=== PATIENT | male | born 1955 | race Caucasian/White ===

== ENCOUNTER 2016-11-09 06:48 | Inpatient (IN) | payer OTHER ==
[2016-11-09] VITALS (14 sets, daily range): BP systolic 104–158; BP diastolic 50–104
[~2016-11-09] VITALS: Ht 172.7 cm; Wt 86.9 kg
--- NOTE | ~2016-11-09 | 2DMMODE ---
[facility] [place] [address] 2 D/M-MODE ECHOCARDIOGRAM Name: NAVJOT BENTON Room #: 240-P [facility] IN ..#: [id number] Admission: 11/09/16 Attend Phys: Harvey Kenny Discharge: Date of : 51 Date of Service: 11/09/16 1510 Report #: [id number] THIS REPORT FOR: //name// APPROVED REPORT Study performed: 11/09/2016 12:17:35 EXAM: Comprehensive 2D, Doppler, and color-flow Echocardiogram Patient Location: Bedside Room #: 240 Blood Pressure: 120/93 mmHg HR: 55 bpm Rhythm: Atrial Fibrillation Other Information Study Quality: Adequate Indications Atrial Fibrillation 2D Dimensions RVDd: 43.96 mm LVEF(%): 74.37 (>50%) IVSd: 11.04 (7-11mm) LVOT Diam: 20.43 (18-24mm) LVDd: 49.97 mm PWd: 9.15 (7-11mm) Ascending Ao: 37.12 (22-36mm) LVDs: 28.27 (25-40mm) Aortic Root: 35.71 mm Benton's LVEF: 74.37 % Volumes Left Atrial Volume (Systole) Single Plane 4CH: 82.19 mL Single Plane 2CH: 80.29 mL LA ESV Index: 44.00 mL/m2 Aortic Valve AoV Peak Alireza.: 1.43 m/s AO Peak Gr.: 8.13 mmHg LVOT Max P.09 mmHg LVOT Max V: 1.23 m/s Mitral Valve MV Decel. Time: 183.81 ms MV E Max Alireza.: 1.07 m/s [facility] [address] [place] [address] 2 D/M-MODE ECHOCARDIOGRAM Name: NAVJOT BENTON Room #: [address] [place] [address] [place] [facility]#: [id number] Admission: 11/09/16 Attend Phys: Harvey Kenny Discharge: Date of : 51 Date of Service: 11/09/16 1510 Report #: [id number] Pulmonary Valve PV Peak Alireza.: 1.18 m/s PV Peak Gr.: 5.60 mmHg Pulmonary Vein P Vein S: 58.9 m/s P Vein D: 66.7 m/s Tricuspid Valve TR Peak Alireza.: 1.96 m/s RAP Estimate: 5.00 mmHg TR Peak Gr.: 15.35 mmHg RVSP: 20.00 mmHg Left Ventricle The left ventricle is normal size. There is normal LV segmental wall motion. There is normal left ventricular wall thickness. Left ventricular systolic function is normal. LVEF is 55-60%. This study is not technically sufficient to allow evaluation of the LV diastolic function due to atrial fibrillation. Right Ventricle Right ventricle is mildly dilated. The right ventricular systolic function is normal. Atria Left atrium is moderately dilated. Right atrium is moderately dilated. Aortic Valve The aortic valve is normal in structure. Mild aortic regurgitation. There is no aortic valvular stenosis. Mitral Valve The mitral valve is normal in structure. Mild mitral annular calcification. Mild mitral regurgitation. Tricuspid Valve The tricuspid valve is normal in structure. There is mild tricuspid regurgitation. The right atrial pressure is estimated at 5 mmHg. Estimated PAP is 20mmHg. Pulmonic Valve Trace pulmonic regurgitation. Great Vessels The aortic root is normal in size. Ascending aorta measures at the upper limits of normal. IVC is normal in size and collapses >50% [facility] [address] [place] [address] 2 D/M-MODE ECHOCARDIOGRAM Name: NAVJOT BENTON Room #: 240-P [facility] IN ..#: [id number] Admission: 11/09/16 Attend Phys: Harvey Kenny Discharge: Date of : 51 Date of Service: 11/09/16 1510 Report #: [id number] with inspiration. Pericardium There is no pericardial effusion. <Conclusion> The left ventricle is normal size. Left ventricular systolic function is normal. Right ventricle is mildly dilated. Left atrium is moderately dilated. Right atrium is moderately dilated. Mild aortic regurgitation. Mild mitral regurgitation. There is mild tricuspid regurgitation. The right atrial pressure is estimated at 5 mmHg. Estimated PAP is 20mmHg. <ELECTRONICALLY SIGNED> By: Regan Garcia MD 11/09/16 1510 09 151 Regan Garcia MD /INF
--- NOTE | ~2016-11-09 | EKG ---
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
--- NOTE | ~2016-11-09 | HC ---
[facility] [place] [address] CONSULTATION Name: BENTONNAVJOT Talha Room #: 240-P [facility] IN .R.#: [id number] Admission: 11/09/16 Attend Phys: Lux Raphael MD Discharge: Date of : 51 Report #: [id number] THIS REPORT FOR: //name// CC: Lux Mauro MD REASON FOR CONSULTATION: Bradycardia. HISTORY OF PRESENT ILLNESS: The patient is a 62-year-old gentleman with longstanding hypertension. He has been generally in good health. Last night, he developed lower back pain, which is not unusual following his exercise routine and took 5 ibuprofen tablets over the course of the evening. This morning, he came to work and became intensely diaphoretic and dizzy and near syncopal. He was seen in the emergency department where he was in atrial fibrillation with a very slow ventricular response. He did take his usual blood pressure medicines this morning including Cardizem CD 240 and Coreg 25 mg. He tells me that it is not unusual for the blood bank to refuse to accept this blood due to heart rates that are in the 40s. He denies orthopnea or paroxysmal nocturnal dyspnea. No chest pain, pressure or ischemic type symptoms. No prior history of atrial fibrillation. No prior history of syncope. ALLERGIES: He is allergic to PENICILLIN. MEDICATIONS: Include diltiazem CD 240 mg daily, losartan 100 mg daily, carvedilol 25 mg twice daily, Dyazide 37.5/25 one daily and spironolactone. PAST MEDICAL HISTORY: Medical records have been reviewed and include a history of hypertension, tonsillectomy, history of gout. He does have history of LVH by prior echo. SOCIAL HISTORY: He is nonsmoker, occasional drinker. FAMILY HISTORY: Notable for hypertension. REVIEW OF SYSTEMS: All systems negative except as that noted above. PHYSICAL EXAMINATION: GENERAL: A pleasant gentleman in no distress. VITAL SIGNS: Blood pressure is 110/66, heart rate of 45 and irregular, respirations unlabored at 18. HEENT: There are neither xanthelasma, subcutaneous xanthomata, oral mucosal or digital cyanosis or kyphoscoliosis present. CHEST: Clear to auscultation and percussion. CARDIOVASCULAR: An irregularly irregular rhythm with normal S1, S2. No murmurs or rubs. ABDOMEN: Soft and nontender. [facility] [address] [place] [address] CONSULTATION Name: NAVJOT BENTON Talha Room #: 240-P [facility] IN M.R.#: [id number] Admission: 11/09/16 Attend Phys: Lux Raphael MD Discharge: Date of : 51 Report #: [id number] EXTREMITIES: Without cyanosis, clubbing or edema. Radial pulses are 2+. NEUROLOGIC: He is alert with a nonfocal exam. LABORATORY DATA: EKG, atrial fibrillation with a slow ventricular response. Sodium 144, potassium 4.4, creatinine 2.4, creatinine a year ago was 1.4. ProBNP of 2631, troponin 0. White count 13.3, hemoglobin 15, hematocrit 44, platelet count 190. Thyroid function studies are normal. Chest x-ray is normal. IMPRESSION: 1. Atrial fibrillation with a slow ventricular response. Atrial fibrillation is of unknown chronicity. 2. Symptomatic bradycardia related to #1 above. 3. Renal failure, probably related to a combination of things including high dose ibuprofen, diuretic therapy, GERBER inhibitor, impaired cardiac output insert as a consequence of bradycardia. 4. Hypertension. 5. Hypercoagulable with a CHADS-VASc score of 2. RECOMMENDATIONS: 1. Hold carvedilol, Cardizem; wash out of medications. 2. Echocardiogram with Doppler. 3. IV fluids and avoidance of nonsteroidal anti-inflammatories. I would hold ARB therapy for now. 4. Anticoagulant therapy will be recommended. NOAC would be ideal although given his current acute renal failure, this is somewhat problematic. We will wait to see where his kidney function sorts out. I suspect that it is probably normal. Thank you for asking me to participate in the patient's care. By: 0818 1111 Wilner Juan MD, [facility] /nt
--- NOTE | ~2016-11-09 | EKG ---
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 11/10/1642 0649 0649 Wilner Juan MD, [facility] /EPI
--- NOTE | ~2016-11-09 | EKG ---
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: Vangie KINCAID : 1955 Requested By: Lux Raphael Order Number: [id number] MD: Wilner Juan Measurements Intervals [place] Rate: 70 P: [place]: QRS: -6 QRSD: 98 T: 4 QT: 467 QTc: 504 Interpretive Statements Atrial fibrillation Otherwise no significant abnormality Compared to ECG 06/25/2009 20:05:45 No significant change was found Electronically Signed On 11-10-2016 8:48:00 CDT by Wilner Juan [email or web address] <ELECTRONICALLY SIGNED> By: Wilner Juan MD, [facility] 11/10/16 0848 1137 113 Wilner Juan MD, [facility] /EPI
[~2016-11-09 06:48] MED LIST: ACYCLOVIR 800800 MG PO; ADVIL MIGRAINE200 MG PO; BENICAR HCT 401 EAC1 PO; COREG CR20 MG PO; EXCEDRIN CAPLE1 EACH PO; FLOMAX PO; LORTAB 7.5/5001 TA1 PO; PERCOCET 5-3251 EACH PO; PREDNISONE50 MG PO
[2016-11-09 07:15] LABS: ABSOLUTE NEUTROPHILS 9.5 thou/uL (1.4-8.2); BASOPHILS 0.8 % (0.0-2.0); EOSINOPHILS 0.6 % (0.0-3.0); HEMATOCRIT 44.9 % (42.0-52.0); HEMOGLOBIN 15.8 gm/dL (14.0-18.0); LYMPHOCYTES 16.7 % (24.0-44.0); MCHC 35.2 g/dL (28.0-37.0); MCV 93.8 fL (80.0-100.0); MONOCYTES 10.1 % (1.0-8.0); PLATELET COUNT 190 thou/uL (150-400); POLYS 71.8 % (36.0-66.0); RBC 4.79 mil/uL (4.50-6.00); RDW 12.8 % (10.5-14.5); WBC 13.3 thou/uL (4.0-11.0)
[2016-11-09] MEDS ORDERED: LOSARTAN POTAS100 MG PO (07:15)
[2016-11-09] MEDS ORDERED: CARDIZEM CD240 MG PO (07:15)
[2016-11-09] MEDS ORDERED: CARVEDILOL25 MG PO (07:16)
[2016-11-09] MEDS ORDERED: TRIAMTERENE/HCT1 CA1 PO (07:16)
[2016-11-09] MEDS ORDERED: ALDACTONE25 MG PO (07:17)
[2016-11-09 07:18] LABS: MANUAL DIFF NO
[2016-11-09 07:24] LABS: ANION GAP 10 mmol/L (7-16); BUN 35 mg/dL (7-18); CALCIUM 9.5 mg/dL (8.5-10.1); CHLORIDE 105 mmol/L (98-107); CO2 29 mmol/L (21-32); CREATININE 2.4 mg/dL (0.7-1.3); GLUCOSE 146 mg/dL (74-106); POTASSIUM 4.4 mmol/L (3.5-5.1); SODIUM 144 mmol/L (136-145)
[2016-11-09 07:37] LABS: NT-PRO BRAIN NAT PEPTIDE 2631 pg/mL (<300); TROPONIN-I < 0.04 ng/mL (<0.04-0.07)
[2016-11-09 08:46] LABS: CHOLESTEROL 233 mg/dL (<200); HDL CHOLESTEROL 50 mg/dL (>40); LDL CHOLESTEROL 145 mg/dL (<100); TC:HDL 4.7 Ratio (Not establshd); TRIGLYCERIDE 190 mg/dL (<150); VLDL 38 mg/dL (<40)
[2016-11-09 10:28] LABS: URINE BILIRUBIN NEGATIVE (Negative); URINE BLOOD NEGATIVE (Negative); URINE COLOR YELLOW; URINE GLUCOSE-RANDOM* NEGATIVE (Negative); URINE KETONES NEGATIVE (Negative); URINE LEUKOCYTES-REFLEX NEGATIVE (Negative); URINE PROTEIN (DIPSTICK) NEGATIVE (Negative); URINE UROBILINOGEN 0.2 E.U./dl (0.2-1.0)
[2016-11-09 19:12] LABS: GLYCOHEMOGLOBIN (HGB A1C) 5.1 % (4.8-5.6)
[2016-11-10] VITALS (11 sets, daily range): BP systolic 128–176; BP diastolic 89–111
[2016-11-10 04:38] LABS: ABSOLUTE NEUTROPHILS 5.1 thou/uL (1.4-8.2); EOSINOPHILS 1.9 % (0.0-3.0); HEMATOCRIT 41.9 % (42.0-52.0); HEMOGLOBIN 14.5 gm/dL (14.0-18.0); LYMPHOCYTES 27.1 % (24.0-44.0); MCH 32.7 pg (26.0-34.0); MCHC 34.7 g/dL (28.0-37.0); MCV 94.1 fL (80.0-100.0); MONOCYTES 7.8 % (1.0-8.0); PLATELET COUNT 155 thou/uL (150-400); POLYS 62.2 % (36.0-66.0); RBC 4.45 mil/uL (4.50-6.00); RDW 12.9 % (10.5-14.5); WBC 8.2 thou/uL (4.0-11.0)
[2016-11-10 04:46] LABS: CALCIUM 8.5 mg/dL (8.5-10.1); CREATININE 1.7 mg/dL (0.7-1.3); POTASSIUM 3.6 mmol/L (3.5-5.1)
[2016-11-10 04:54] LABS: MANUAL DIFF NO
[2016-11-11] VITALS: BP 175/108
[2016-11-11 03:00] VITALS: BP 180/108
[2016-11-11 03:55] LABS: CALCIUM 8.4 mg/dL (8.5-10.1); CREATININE 1.5 mg/dL (0.7-1.3); POTASSIUM 3.3 mmol/L (3.5-5.1)
[2016-11-11] MEDS ORDERED: ELIQUIS5 MG PO (09:10)
[2016-11-11] MEDS ORDERED: MAG6464 MG PO (09:10)
[2016-11-11] MEDS ORDERED: COLACE100 MG PO (09:10)
[2016-11-11] MEDS ORDERED: PROTONIX40 M2 PO (09:10)
[2016-11-11] MEDS ORDERED: ASPIR 8181 MG PO (09:10)
[2016-11-11] MEDS ORDERED: HOME MEDICATION PO (09:22)
[2016-11-11 13:07] VITALS: BP 173/108
[2016-11-11 15:04] VITALS: BP 173/108
== END 2016-11-11 15:00 | disposition home or self-care (01) | DRG 308 ==
LOC: ER 06:48 → ICU 07:53 → EROBS 07:53 → ICU 09:11 → 2N 11-10 16:15
PROVIDERS: Emergency Medicine; Internal Medicine; Nurse Practitioner
DX: I48.91 Unspecified atrial fibrillation (principal); N17.0 Acute kidney failure with tubular necrosis; D68.59 Other primary thrombophilia; I10 Essential (primary) hypertension; E78.5 Hyperlipidemia, unspecified; M10.9 Gout, unspecified; D72.829 Elevated white blood cell count, unspecified; Z87.442 Personal history of urinary calculi; Z88.0 Allergy status to penicillin; Z79.82 Long term (current) use of aspirin; Z79.899 Other long term (current) drug therapy; Z82.49 Family history of ischemic heart disease and other diseases of the circulatory system
CPT/HCPCS: 10078; 10081

== ENCOUNTER → 2016-11-16 | Outpatient (CLI) | payer OTHER ==
[~2016-11-16] MED LIST changes: +ALDACTONE25 MG PO; +ASPIR 8181 MG PO; +CARDIZEM CD240 MG PO; +CARVEDILOL25 MG PO; +COLACE100 MG PO; +ELIQUIS5 MG PO; +HOME MEDICATION PO; +LOSARTAN POTAS100 MG PO; +MAG6464 MG PO; +PROTONIX40 M2 PO; +TRIAMTERENE/HCT1 CA1 PO
[2016-11-16 09:58] LABS: CALCIUM 8.6 mg/dL (8.5-10.1); CREATININE 1.3 mg/dL (0.7-1.3); POTASSIUM 3.8 mmol/L (3.5-5.1)
[2016-11-16 10:03] LABS: ALBUMIN 3.6 g/dL (3.4-5.0); TOTAL BILIRUBIN 0.7 mg/dL (<0.1-1.0); TOTAL PROTEIN 6.9 g/dL (6.4-8.2); URIC ACID* 8.3 mg/dL (2.6-7.2)
== END ==
LOC: LABMALL 09:12
PROVIDERS: Family Medicine
DX: I10 Essential (primary) hypertension (principal)

== ENCOUNTER → 2017-01-26 | Outpatient (CLI) | payer OTHER ==
[2017-01-26 12:16] LABS: BASOPHILS 1.3 % (0.0-2.0); EOSINOPHILS 2.4 % (0.0-3.0); HEMOGLOBIN 15.3 gm/dL (14.0-18.0); LYMPHOCYTES 24.2 % (24.0-44.0); MCH 32.6 pg (26.0-34.0); MCHC 34.7 g/dL (28.0-37.0); MONOCYTES 8.4 % (1.0-8.0); PLATELET COUNT 180 thou/uL (150-400); POLYS 63.7 % (36.0-66.0); RBC 4.68 mil/uL (4.50-6.00); RDW 13.4 % (10.5-14.5); WBC 6.3 thou/uL (4.0-11.0)
[2017-01-26 12:17] LABS: MANUAL DIFF NO
[2017-01-26 12:32] LABS: ALBUMIN 4.1 g/dL (3.4-5.0); ALKALINE PHOSPHATASE 91 U/L (46-116); ANION GAP 9 mmol/L (7-16); BUN 21 mg/dL (7-18); CALCIUM 9.1 mg/dL (8.5-10.1); CHLORIDE 107 mmol/L (98-107); CHOLESTEROL 194 mg/dL (<200); CO2 27 mmol/L (21-32); CREATININE 1.3 mg/dL (0.7-1.3); GLUCOSE 92 mg/dL (74-106); HDL CHOLESTEROL 50 mg/dL (>40); LDL CHOLESTEROL 130 mg/dL (<100); SGOT 30 U/L (15-37); SGPT 27 U/L (30-65); SODIUM 143 mmol/L (136-145); TC:HDL 3.9 Ratio (Not establshd); TOTAL BILIRUBIN 1.1 mg/dL (<0.1-1.0); TOTAL PROTEIN 7.4 g/dL (6.4-8.2); TRIGLYCERIDE 72 mg/dL (<150); URIC ACID* 5.8 mg/dL (2.6-7.2); VLDL 14 mg/dL (<40)
== END ==
LOC: LABMALL 11:05
PROVIDERS: Family Medicine
DX: I10 Essential (primary) hypertension (principal); M10.9 Gout, unspecified; E78.00 Pure hypercholesterolemia, unspecified

== ENCOUNTER 2017-06-15 06:43 | Emergency (ER) | payer OTHER ==
[~2017-06-15] VITALS: Ht 172.7 cm; Wt 83.9 kg
--- NOTE | ~2017-06-15 | EKG ---
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 : 1955 Requested By: Idris Teixeira Order Number: [id number] MD: Wilner Juan Measurements Intervals [place] Rate: 59 P: [place]: QRS: 13 QRSD: 98 T: -2 QT: 432 QTc: 428 Interpretive Statements Atrial fibrillation Otherwise no significant abnormality Compared to ECG 11/09/2016 11:37:20 No significant changes Electronically Signed On 06-15-2017 7:48:26 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
[2017-06-15] MEDS ORDERED: EDARBI40 MG PO (06:50)
[2017-06-15] MEDS ORDERED: HYDROCHLOROTH12.5 M1 PO (06:51)
[2017-06-15 07:02] LABS: HEMATOCRIT 51.2 % (42.0-52.0); MCH 32.8 pg (26.0-34.0); MCHC 35.1 g/dL (28.0-37.0); MCV 93.6 fL (80.0-100.0); PLATELET COUNT 183 thou/uL (150-400); RBC 5.48 mil/uL (4.50-6.00); RDW 13.6 % (10.5-14.5); WBC 8.4 thou/uL (4.0-11.0)
[2017-06-15 07:03] LABS: MANUAL DIFF YES
[2017-06-15 07:09] LABS: ANION GAP 9 mmol/L (7-16); BUN 21 mg/dL (7-18); CALCIUM 9.2 mg/dL (8.5-10.1); CHLORIDE 98 mmol/L (98-107); CO2 31 mmol/L (21-32); CREATININE 1.8 mg/dL (0.7-1.3); GLUCOSE 138 mg/dL (74-106); POTASSIUM 3.2 mmol/L (3.5-5.1); SODIUM 138 mmol/L (136-145)
[2017-06-15 07:18] LABS: ALBUMIN 3.9 g/dL (3.4-5.0); ALKALINE PHOSPHATASE 82 U/L (46-116); MAGNESIUM 2.3 mg/dL (1.8-2.4); SGOT 28 U/L (15-37); SGPT 34 U/L (30-65); TOTAL PROTEIN 7.9 g/dL (6.4-8.2); TROPONIN-I < 0.04 ng/mL (<0.06)
[2017-06-15 07:34] LABS: ABSOLUTE NEUTROPHILS 5.9 thou/uL (1.4-8.2); TOTAL CELL COUNT 100
[2017-06-15 07:36] LABS: ANISOCYTOSIS SLIGHT
[2017-06-15] MEDS ORDERED: ZOFRAN ODT8 MG PO (08:14)
[2017-06-15] MEDS ORDERED: OSELB75 PO (08:21)
== END 2017-06-15 08:50 | disposition home or self-care (01) ==
LOC: ER 06:43
PROVIDERS: Emergency Medicine
DX: J09.X2 Influenza due to identified novel influenza A virus with other respiratory manifestations (principal); I10 Essential (primary) hypertension; Z90.89 Acquired absence of other organs; Z87.442 Personal history of urinary calculi; Z88.0 Allergy status to penicillin

== ENCOUNTER → 2017-08-20 | Outpatient (CLI) | payer OTHER ==
[~2017-08-20] MED LIST changes: +EDARBI40 MG PO; +HYDROCHLOROTH12.5 M1 PO; +OSELB75 PO; +ZOFRAN ODT8 MG PO
[2017-08-20 10:04] LABS: BASOPHILS 0.9 % (0.0-2.0); HEMATOCRIT 46.6 % (42.0-52.0); HEMOGLOBIN 16.4 gm/dL (14.0-18.0); MCH 33.1 pg (26.0-34.0); MCHC 35.1 g/dL (28.0-37.0); MCV 94.3 fL (80.0-100.0); MONOCYTES 9.4 % (1.0-8.0); PLATELET COUNT 169 thou/uL (150-400); POLYS 63.7 % (36.0-66.0); RBC 4.94 mil/uL (4.50-6.00); RDW 13.5 % (10.5-14.5); WBC 7.9 thou/uL (4.0-11.0)
[2017-08-20 10:13] LABS: ALBUMIN 3.9 g/dL (3.4-5.0); ANION GAP 6 mmol/L (7-16); BUN 21 mg/dL (7-18); CHLORIDE 106 mmol/L (98-107); CHOLESTEROL 186 mg/dL (<200); CO2 32 mmol/L (21-32); CREATININE 1.2 mg/dL (0.7-1.3); GLUCOSE 111 mg/dL (74-106); HDL CHOLESTEROL 52 mg/dL (>40); LDL CHOLESTEROL 121 mg/dL (<100); POTASSIUM 3.8 mmol/L (3.5-5.1); SGOT 40 U/L (15-37); SGPT 49 U/L (30-65); SODIUM 144 mmol/L (136-145); TC:HDL 3.6 Ratio (Not establshd); TOTAL BILIRUBIN 0.9 mg/dL (<0.1-1.0); TRIGLYCERIDE 69 mg/dL (<150); VLDL 14 mg/dL (<40)
== END ==
LOC: LABMALL 09:30
PROVIDERS: Family Medicine
DX: Z12.5 Encounter for screening for malignant neoplasm of prostate (principal); I10 Essential (primary) hypertension; E78.00 Pure hypercholesterolemia, unspecified; R97.20 Elevated prostate specific antigen [PSA]

== ENCOUNTER → 2018-07-25 | Outpatient (CLI) | payer OTHER | LOC: RAD 15:35 | DX: M19.072 Primary osteoarthritis, left ankle and foot (principal) ==

== ENCOUNTER → 2019-11-02 | Outpatient (CLI) | payer OTHER | LOC: RAD 13:42 | DX: M47.816 Spondylosis without myelopathy or radiculopathy, lumbar region (principal); M25.552 Pain in left hip ==

== ENCOUNTER 2019-11-07 10:17 | Emergency (ER) | payer OTHER ==
[~2019-11-07] VITALS: Ht 172.7 cm; Wt 82.6 kg
[2019-11-07] MEDS ORDERED: CHLORTHALIDONE25 MG PO (10:29)
[2019-11-07] MEDS ORDERED: ALLOPURINOL 10100 M3 PO (10:29)
[2019-11-07] MEDS ORDERED: DORYX MPC120 MG PO (10:30)
[2019-11-07] MEDS ORDERED: NORCO 5-325 TA1 EAC1 PO ×2 (11:21→11:23)
[2019-11-07] MEDS ORDERED: MEDROLDOSEPACK PO ×2 (11:21→11:23)
[2019-11-07 12:15] VITALS: BP 111/81
== END 2019-11-07 12:00 | disposition home or self-care (01) ==
LOC: ER 10:17
DX: M54.42 Lumbago with sciatica, left side (principal); I10 Essential (primary) hypertension; Z90.89 Acquired absence of other organs; Z87.442 Personal history of urinary calculi; Z79.899 Other long term (current) drug therapy; Z79.2 Long term (current) use of antibiotics; Z88.8 Allergy status to other drugs, medicaments and biological substances; Z88.0 Allergy status to penicillin

== ENCOUNTER 2019-11-13 09:56 | Emergency (ER) | payer OTHER ==
[~2019-11-13] VITALS: Ht 172.7 cm; Wt 83.0 kg
[~2019-11-13 09:56] MED LIST changes: +ALLOPURINOL 10100 M3 PO; +CHLORTHALIDONE25 MG PO; +DORYX MPC120 MG PO; +MEDROLDOSEPACK PO; +NORCO 5-325 TA1 EAC1 PO
[2019-11-13] MEDS ORDERED: FLEXERIL PO (10:20)
[2019-11-13 10:30] LABS: ABSOLUTE NEUTROPHILS 11.8 thou/uL (1.4-8.2); BASOPHILS 0.3 % (0.0-2.0); EOSINOPHILS 0.4 % (0.0-3.0); HEMATOCRIT 49.9 % (42.0-52.0); HEMOGLOBIN 17.3 gm/dL (14.0-18.0); LYMPHOCYTES 11.5 % (24.0-44.0); MCH 33.5 pg (26.0-34.0); MCHC 34.7 g/dL (28.0-37.0); MCV 96.5 fL (80.0-100.0); MONOCYTES 4.6 % (1.0-8.0); PLATELET COUNT 187 thou/uL (150-400); POLYS 83.2 % (36.0-66.0); RBC 5.17 mil/uL (4.50-6.00); RDW 13.3 % (10.5-14.5); WBC 14.2 thou/uL (4.0-11.0)
[2019-11-13 10:32] LABS: ANION GAP 8 mmol/L (7-16); BUN 27 mg/dL (7-18); CALCIUM 8.9 mg/dL (8.5-10.1); CHLORIDE 101 mmol/L (98-107); CO2 31 mmol/L (21-32); CREATININE 1.4 mg/dL (0.7-1.3); GLUCOSE 175 mg/dL (74-106); POTASSIUM 3.8 mmol/L (3.5-5.1); SODIUM 140 mmol/L (136-145)
[2019-11-13 10:41] LABS: ALBUMIN 3.8 g/dL (3.4-5.0); SGOT 23 U/L (15-37); SGPT 30 U/L (30-65); TOTAL PROTEIN 6.9 g/dL (6.4-8.2); TROPONIN-I <0.06 ng/mL (<0.06)
[2019-11-13 11:22] VITALS: BP 150/74
--- NOTE | 2019-11-13 16:54 | EKG ---
[facility] [place] [address] ELECTROCARDIOGRAM REPORT Name: NAVJOT BENTON Room #: [facility]#: [id number] Admission: 11/13/19 Attend Phys: Discharge: 11/13/19 Date of : 51 Report #: [id number] THIS REPORT FOR: cc: Sandy Weiss Beth RNP Lundgren, Craig H. 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: [facility] : 1955 Requested By: Emerson Durham Order Number: [id number] MD: Wilner Juan Measurements Intervals [place] Rate: 121 P: [place]: QRS: -20 QRSD: 95 T: 215 QT: 340 QTc: 483 Interpretive Statements Atrial fibrillation Borderline left axis deviation Nonspecific ST and T wave abnormality Compared to ECG 03/27/2018 10:59:18 Nonspecific change in the ST and T wave segments Electronically Signed On 11-13-2019 16:53:00 CDT by Wilner Juan [email or web address] <ELECTRONICALLY SIGNED> By: Wilner Juan MD, [facility] 11/13/19 1653 1014 1014 Wilner Juan MD, [facility] /EPI
== END 2019-11-13 11:22 | disposition home or self-care (01) ==
LOC: ER 09:56
PROVIDERS: Emergency Medicine
DX: E86.0 Dehydration (principal); R00.2 Palpitations; I48.91 Unspecified atrial fibrillation; I10 Essential (primary) hypertension; Z90.89 Acquired absence of other organs; Z87.442 Personal history of urinary calculi; Z79.899 Other long term (current) drug therapy; Z79.2 Long term (current) use of antibiotics; Z88.8 Allergy status to other drugs, medicaments and biological substances

== ENCOUNTER → 2020-05-01 | Outpatient (CLI) | payer OTHER ==
[~2020-05-01] MED LIST changes: +FLEXERIL PO
== END ==
LOC: SJCVCIMAG 09:19
PROVIDERS: ATTEND Internal Medicine
DX: I08.1 Rheumatic disorders of both mitral and tricuspid valves (principal); I48.91 Unspecified atrial fibrillation

== ENCOUNTER → 2020-08-05 | Outpatient (CLI) | payer OTHER ==
[2020-08-05 13:07] LABS: ABSOLUTE NEUTROPHILS 7.2 thou/uL (1.4-8.2); BASOPHILS 0.9 % (0.0-2.0); EOSINOPHILS 1.1 % (0.0-3.0); HEMATOCRIT 45.7 % (42.0-52.0); HEMOGLOBIN 15.9 gm/dL (14.0-18.0); LYMPHOCYTES 15.1 % (24.0-44.0); MCH 32.8 pg (26.0-34.0); MCHC 34.8 g/dL (28.0-37.0); MCV 94.4 fL (80.0-100.0); MONOCYTES 8.3 % (1.0-8.0); PLATELET COUNT 178 thou/uL (150-400); POLYS 74.6 % (36.0-66.0); RBC 4.84 mil/uL (4.50-6.00); RDW 13.3 % (10.5-14.5); WBC 9.7 thou/uL (4.0-11.0)
[2020-08-05 13:19] LABS: CALCIUM 8.8 mg/dL (8.5-10.1); CREATININE 1.1 mg/dL (0.7-1.3); POTASSIUM 3.1 mmol/L (3.5-5.1); TOTAL PROTEIN 7.1 g/dL (6.4-8.2); URIC ACID* 7.3 mg/dL (3.5-7.2)
== END ==
LOC: LAB 12:01
PROVIDERS: ATTEND Family Medicine
DX: M25.541 Pain in joints of right hand (principal)

== ENCOUNTER → 2020-09-11 | Outpatient (CLI) | payer OTHER ==
[2020-09-11 13:40] LABS: ABSOLUTE NEUTROPHILS 4.4 thou/uL (1.4-8.2); BASOPHILS 1.4 % (0.0-2.0); EOSINOPHILS 0.7 % (0.0-3.0); HEMATOCRIT 47.1 % (42.0-52.0); HEMOGLOBIN 15.9 gm/dL (14.0-18.0); LYMPHOCYTES 24.2 % (24.0-44.0); MCHC 33.9 g/dL (28.0-37.0); MCV 97.3 fL (80.0-100.0); MONOCYTES 7.5 % (1.0-8.0); PLATELET COUNT 214 thou/uL (150-400); POLYS 66.2 % (36.0-66.0); RBC 4.84 mil/uL (4.50-6.00); RDW 13.4 % (10.5-14.5); WBC 6.7 thou/uL (4.0-11.0)
[2020-09-11 13:54] LABS: ALBUMIN 4.2 g/dL (3.4-5.0); CALCIUM 9.4 mg/dL (8.5-10.1); CREATININE 1.5 mg/dL (0.7-1.3); POTASSIUM 4.2 mmol/L (3.5-5.1); TOTAL BILIRUBIN 1.1 mg/dL (0.2-1.0); TOTAL PROTEIN 7.5 g/dL (6.4-8.2)
[2020-09-12 20:33] LABS: PSA 3.6 ng/mL (0.0-4.0); TESTOSTERONE* 693 ng/dL (264-916)
== END ==
LOC: LAB 13:06
PROVIDERS: ATTEND Nurse Practitioner
DX: N40.0 Benign prostatic hyperplasia without lower urinary tract symptoms (principal); I10 Essential (primary) hypertension; R53.83 Other fatigue

== ENCOUNTER → 2020-09-20 | Outpatient (CLI) | payer OTHER ==
[2020-09-20 10:20] LABS: CREATININE 1.2 mg/dL (0.7-1.3); POTASSIUM 3.9 mmol/L (3.5-5.1)
== END ==
LOC: LAB 09:51
PROVIDERS: ATTEND Nurse Practitioner
DX: R79.89 Other specified abnormal findings of blood chemistry (principal)

== ENCOUNTER → 2020-10-07 | Outpatient (CLI) | payer OTHER ==
[2020-10-07 11:14] LABS: CALCIUM 8.9 mg/dL (8.5-10.1); CREATININE 1.1 mg/dL (0.7-1.3); POTASSIUM 3.8 mmol/L (3.5-5.1); URIC ACID* 4.9 mg/dL (3.5-7.2)
== END ==
LOC: LAB 10:32 → RAD 10:32
PROVIDERS: ATTEND Nurse Practitioner
DX: M10.241 Drug-induced gout, right hand (principal); M10.9 Gout, unspecified

== ENCOUNTER → 2020-10-22 | Outpatient (CLI) | payer OTHER ==
[2020-10-22 11:17] LABS: ANION GAP 10 mmol/L (7-16); BUN 30 mg/dL (7-18); CALCIUM 9.6 mg/dL (8.5-10.1); CHLORIDE 105 mmol/L (98-107); CHOLESTEROL 213 mg/dL (<200); CO2 32 mmol/L (21-32); CREATININE 1.4 mg/dL (0.7-1.3); GLUCOSE 98 mg/dL (74-106); HDL CHOLESTEROL 60 mg/dL (>40); LDL CHOLESTEROL 122 mg/dL (<100); MAGNESIUM 2.3 mg/dL (1.8-2.4); POTASSIUM 3.6 mmol/L (3.5-5.1); SODIUM 147 mmol/L (136-145); TC:HDL 3.6 Ratio (Not establshd); TRIGLYCERIDE 157 mg/dL (<150); VLDL 31 mg/dL (<40)
== END ==
LOC: LAB 10:49
PROVIDERS: ATTEND Nurse Practitioner
DX: I10 Essential (primary) hypertension (principal)

== ENCOUNTER → 2020-11-25 | Outpatient (CLI) | payer OTHER ==
[2020-11-25 10:23] LABS: HEMATOCRIT 49.2 % (42.0-52.0)
[2020-11-25 10:25] LABS: ABSOLUTE NEUTROPHILS 6.3 thou/uL (1.4-8.2); BASOPHILS 0.8 % (0.0-2.0); EOSINOPHILS 1.5 % (0.0-3.0); HEMOGLOBIN 16.8 gm/dL (14.0-18.0); LYMPHOCYTES 19.4 % (24.0-44.0); MCH 33.1 pg (26.0-34.0); MCHC 34.1 g/dL (28.0-37.0); MCV 97.1 fL (80.0-100.0); MONOCYTES 11.3 % (1.0-8.0); PLATELET COUNT 149 thou/uL (150-400); RBC 5.07 mil/uL (4.50-6.00); RDW 13.9 % (10.5-14.5); WBC 9.4 thou/uL (4.0-11.0)
[2020-11-25 10:35] LABS: ALBUMIN 3.8 g/dL (3.4-5.0); CALCIUM 9.2 mg/dL (8.5-10.1); CREATININE 1.2 mg/dL (0.7-1.3); POTASSIUM 3.9 mmol/L (3.5-5.1); TOTAL PROTEIN 7.2 g/dL (6.4-8.2); URIC ACID* 5.4 mg/dL (3.5-7.2)
== END ==
LOC: LAB 09:36
PROVIDERS: ATTEND Nurse Practitioner
DX: I12.9 Hypertensive chronic kidney disease with stage 1 through stage 4 chronic kidney disease, or unspecified chronic kidney disease (principal); N18.2 Chronic kidney disease, stage 2 (mild); M10.9 Gout, unspecified

== ENCOUNTER → 2021-01-07 | Outpatient (CLI) | payer OTHER ==
[2021-01-07 09:02] LABS: ABSOLUTE NEUTROPHILS 3.6 thou/uL (1.4-8.2); BASOPHILS 1.3 % (0.0-2.0); EOSINOPHILS 2.2 % (0.0-3.0); HEMATOCRIT 45.3 % (42.0-52.0); HEMOGLOBIN 15.6 gm/dL (14.0-18.0); LYMPHOCYTES 28.7 % (24.0-44.0); MCH 33.2 pg (26.0-34.0); MCHC 34.5 g/dL (28.0-37.0); MCV 96.1 fL (80.0-100.0); MONOCYTES 9.9 % (1.0-8.0); PLATELET COUNT 187 thou/uL (150-400); POLYS 57.9 % (36.0-66.0); RBC 4.72 mil/uL (4.50-6.00); RDW 14.6 % (10.5-14.5); WBC 6.1 thou/uL (4.0-11.0)
[2021-01-07 09:15] LABS: ALBUMIN 3.9 g/dL (3.4-5.0); ANION GAP 8 mmol/L (7-16); BUN 29 mg/dL (7-18); CALCIUM 9.1 mg/dL (8.5-10.1); CHLORIDE 106 mmol/L (98-107); CO2 30 mmol/L (21-32); CREATININE 1.2 mg/dL (0.7-1.3); GLUCOSE 104 mg/dL (74-106); POTASSIUM 3.5 mmol/L (3.5-5.1); SGOT 33 U/L (15-37); SGPT 48 U/L (30-65); SODIUM 144 mmol/L (136-145); TOTAL BILIRUBIN 1.1 mg/dL (0.2-1.0); URIC ACID* 4.3 mg/dL (3.5-7.2)
== END ==
LOC: LAB 08:41
PROVIDERS: ATTEND Nurse Practitioner Family
DX: I12.9 Hypertensive chronic kidney disease with stage 1 through stage 4 chronic kidney disease, or unspecified chronic kidney disease (principal); N18.2 Chronic kidney disease, stage 2 (mild); M10.9 Gout, unspecified; M79.89 Other specified soft tissue disorders

== ENCOUNTER → 2021-05-06 | Outpatient (CLI) | payer OTHER ==
[2021-05-06 09:51] LABS: ABSOLUTE NEUTROPHILS 4.3 thou/uL (1.4-8.2); BASOPHILS 1.2 % (0.0-2.0); EOSINOPHILS 3.4 % (0.0-3.0); HEMATOCRIT 49.9 % (42.0-52.0); HEMOGLOBIN 16.9 gm/dL (14.0-18.0); LYMPHOCYTES 22.8 % (24.0-44.0); MCHC 33.8 g/dL (28.0-37.0); MCV 97.5 fL (80.0-100.0); MONOCYTES 9.6 % (1.0-8.0); PLATELET COUNT 191 thou/uL (150-400); RBC 5.11 mil/uL (4.50-6.00); RDW 14.2 % (10.5-14.5); WBC 6.8 thou/uL (4.0-11.0)
[2021-05-06 10:18] LABS: ALBUMIN 4.1 g/dL (3.4-5.0); CALCIUM 9.2 mg/dL (8.5-10.1); CREATININE 1.4 mg/dL (0.7-1.3); POTASSIUM 3.7 mmol/L (3.5-5.1); TOTAL BILIRUBIN 0.9 mg/dL (0.2-1.0); TOTAL PROTEIN 7.5 g/dL (6.4-8.2); URIC ACID* 4.4 mg/dL (3.5-7.2)
== END ==
LOC: LAB 07:59
PROVIDERS: ATTEND Internal Medicine Rheumatology
DX: N18.2 Chronic kidney disease, stage 2 (mild) (principal); M10.9 Gout, unspecified